=== PATIENT | male | born 1990 | race Caucasian/White ===

== ENCOUNTER 2018-08-28 14:00 | Emergency (ER) | payer OTHER ==
[2018-08-28] MEDS: predniSONE 20 MG TAB PO (15:00)
[2018-08-28] MEDS: HYDROCODONE/APAP (7.5/325) TAB PO (15:18)
== END 2018-08-28 15:24 | disposition home or self-care (01) ==
LOC: FTE 14:00
DX: M54.41 Lumbago with sciatica, right side (principal)
CPT/HCPCS: 99283; J7512

== ENCOUNTER 2018-10-13 12:03 | Emergency (ER) | payer OTHER ==
[2018-10-13] MEDS ORDERED: DEXAMETHASONE 10 MG/ML 1 ML INJ PO (13:30)
[2018-10-13] MEDS: IBUPROFEN 800 MG TAB PO (13:33)
[2018-10-13] MEDS: DIAZEPAM 5 MG TAB PO (13:33)
[2018-10-13] MEDS: DEXAMETHASONE (1 MG/ML PO SYG) PO (13:45)
== END 2018-10-13 14:27 | disposition home or self-care (01) ==
LOC: FTE 12:03
DX: M54.9 Dorsalgia, unspecified (principal); F17.210 Nicotine dependence, cigarettes, uncomplicated
CPT/HCPCS: 99283; Z7502

== ENCOUNTER 2019-04-26 16:15 | Emergency (ER) | payer OTHER ==
[2019-04-26] MEDS: METHYLPREDNISOLONE 125 MG INJ IV (17:02)
[2019-04-26] MEDS: KETOROLAC 30 MG INJ IV (17:03)
[2019-04-26] MEDS: morphine 4 MG/ML VIAL IV (17:03)
[2019-04-26] MEDS: DIAZEPAM 5 MG/ML SYG IV (17:16)
== END 2019-04-26 18:02 | disposition home or self-care (01) ==
LOC: FTE 18:02
DX: M54.31 Sciatica, right side (principal); Z87.891 Personal history of nicotine dependence
CPT/HCPCS: 96374; 96375; 99284-25